=== PATIENT | male | born 1995 | race Caucasian/White ===

== ENCOUNTER 2022-05-30 11:50 | Emergency (ER) | payer SELFPAY ==
[2022-05-30 11:51] VITALS: BP 159/113; PULSE 74; RESP 18; TEMP 36.4; O2SAT 99; BMI 24.4
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
--- NOTE | 2022-05-30 12:17 | ECG_ITS ---
[facility] Test Date: 2022-05-30 Pat Name: Lorena Comer Department: Room: Gender: Male Diagnostic Radiologic Technologist: : 1995 Requested By: Edwin Saini Order Number: [id number] Sarina MD: Jacey Salinas M.D. Measurements Intervals Pep Rate: 53 P: 71 [place]: 155 QRS: 83 QRSD: 102 T: 60 QT: 364 QTc: 342 Interpretive Statements SINUS BRADYCARDIA EARLY REPOLARIZATION [ST ELEVATION WITH NORMALLY INFLECTED T-WAVE] No previous ECG available for comparison Electronically Signed On 05-30-2022 20:42:20 MERCHANDISE SUPERVISOR by Jacey Salinas M.D. [email or web address] regional medical centerYippee Artsselect medical cle[facility], edwin [email or web address]/store/OM/[id number]
[2022-05-30 12:28] LABS: Basophils % 0.8 %; Eosinophils % 0.2 %; Hematocrit 49.6 % (42.0-52.0); Hemoglobin 16.2 g/dL (11.7-16.6); Lymphocytes # 2.3 10^3/uL (0.8-4.8); Lymphocytes % 48.9 %; Mean Corpuscular HGB Conc 32.7 g/dL (30.0-36.0); Mean Corpuscular Hemoglobin 28.4 pg (28.0-34.0); Mean Corpuscular Volume 86.9 fl (80-94); Mean Platelet Volume 9.4 fL (7.4-10.4); Monocytes # 0.4 10^3/uL (0.2-0.9); Monocytes % 9.1 %; Neutrophils # 1.93 10^3/uL (1.8-7.7); Neutrophils % 40.8 %; Nucleated Red Blood Cells % 0 %; Platelet Count 271 10^3/cmm (130-400); Red Blood Count 5.71 10^6/uL (4.1-5.3); Red Cell Distribution Width 11.6 % (12.1-15.1); White Blood Count 4.7 10^3/uL (4.0-10.0)
[2022-05-30 12:49] LABS: Troponin T (5th) Once 7 ng/L (0-15)
[2022-05-30 12:50] LABS: Anion Gap 13.2 (5-19); Blood Urea Nitrogen 7 mg/dL (6-20); Calcium 10.4 mg/dL (8.5-10.5); Carbon Dioxide 30 mmol/L (22-29); Chloride 99 mmol/L (98-107); Creatinine Clr Calc Pharmacy 136.9214; Glomerular Filtration Rate 100.5 mL/min (90-130); Glucose 86 mg/dL (65-115); Osmolality Calculated 283 mOsm/kg (285-295); Potassium 4.2 mmol/L (3.5-5.1); Sodium 138 mmol/L (136-145)
[2022-05-30 13:00] VITALS: BP 137/89; PULSE 56; RESP 17; O2SAT 99
[2022-05-30 13:26] VITALS: BP 157/99
[2022-05-30] MEDS: losartan 50 mg Tablet PO (13:26)
== END 2022-05-30 14:33 ==
PROVIDERS: Emergency Provider Family Medicine
DX: R09.1 Pleurisy (principal); I10 Essential (primary) hypertension; I80.8 Phlebitis and thrombophlebitis of other sites
CPT/HCPCS: 71046; 80048; 84484; 85025; 93005; 99285

== ENCOUNTER 2022-10-04 12:05 | Emergency (ER) | payer SELFPAY ==
[2022-10-04 12:40] VITALS: BMI 24.4
[2022-10-04 12:41] VITALS: BP 159/87; PULSE 74; RESP 18; O2SAT 100
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
--- NOTE | 2022-10-04 12:45 | CT_ITS ---
WS: [id number] CT HEAD NONCONTRAST HISTORY: posterior headache TECHNIQUE: Contiguous axial imaging performed through the brain in 2.5 mm imaging. Bone and soft tiss ue windows. Sagittal and coronal reformats reviewed. All CT scans at [facility] use at least one of these dose optimization techniques: automated exposure control; mA and/or kV adjustment per pa tient size (includes targeted exams where dose is matched to clinical indication); or iterative recon struction. DLP: 1813.04 mGy.cm COMPARISON: None available. No acute intracranial hemorrhage, midline shift or mass effect. No atrophy or prior infarcts or herniation. Ventricles: Normal size with no hydrocephalus. Paranasal sinuses: As visualized are clear. Mastoid air cells: Well pneumatized. Calvarium and scalp: Skull is intact with no soft tissue edema or swelling. CT/CT head wo con* [id number] IMPRESSION: Negative head CT.
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
[2022-10-04] MEDS: HYDROcodone-acetaminophen 5-325 mg Tablet 1 TAB PO (13:58)
--- NOTE | 2022-10-16 13:38 | DCPLANNER ---
TCM called patient due to no primary care physician - no answer at this time.
== END 2022-10-04 14:27 ==
PROVIDERS: Emergency Provider Emergency Medicine
DX: R68.84 Jaw pain (principal); Y04.2XXA Assault by strike against or bumped into by another person, initial encounter; Y92.149 Unspecified place in prison as the place of occurrence of the external cause
CPT/HCPCS: 70450; 70486; 99284